=== PATIENT | female | born 1995 | race African-American/Black ===

== ENCOUNTER 2019-12-31 14:25 | Outpatient (CLI) | payer OTHER, SELFPAY ==
[2019-12-31 15:57] LABS: Basophils Percent Auto 0.2 % (0.2-1.2); Eosinophils Absolute Auto 0.3 K/mm3 (0-0.3); Eosinophils Percent Auto 3.2 % (0-4.4); Hematocrit 29.6 % (37.0-47.0); Hemoglobin 10.1 g/dL (12.0-15.0); Immature Granulocyte Absolute 0.06 K/mm3 (0.00-0.031); Immature Granulocyte Percent A 0.7 % (0-0.5); Lymphocytes Absolute Auto 1.76 K/mm3 (0.9-3.2); Lymphocytes Percent Auto 19.7 % (18.3-44.2); Mean Corpuscular HGB Conc 34.1 g/dl (32-36); Mean Corpuscular Hemoglobin 32.7 pg (26-34); Mean Corpuscular Volume 95.8 fl (80-100); Mean Platelet Volume 9.7 fl (7.4-10.4); Monocytes Absolute Auto 0.6 K/mm3 (0.1-0.6); Monocytes Percent Auto 6.3 % (2.6-8.5); Neutrophils Absolute Auto 6.2 K/mm3 (1.3-6.7); Neutrophils Percent Auto 69.9 % (45.5-73.1); Platelet Count Result 281 k/mm3 (150-375); Red Blood Count 3.09 M/mm3 (4.2-5.4); Red Cell Distribution Width 13.6 % (11.5-14.5); White Blood Count 8.9 K/mm3 (4.5-10.0)
[2019-12-31 16:02] LABS: Glucose 1 Hour PP 50gm Dose 108 mg/dL
== END 2019-12-31 14:26 | disposition home or self-care (01) ==
PROVIDERS: Visit Provider Obstetrics & Gynecology
DX: Z3A.25 25 weeks gestation of pregnancy (principal)
CPT/HCPCS: 36415; 82947; 85025

== ENCOUNTER 2020-02-24 15:19 | Outpatient (CLI) | payer OTHER, SELFPAY ==
[2020-02-24 15:56] LABS: Basophils Percent Auto 0.1 % (0.2-1.2); Eosinophils Absolute Auto 0.2 K/mm3 (0-0.3); Eosinophils Percent Auto 2.8 % (0-4.4); Hematocrit 32.2 % (37.0-47.0); Hemoglobin 10.8 g/dL (12.0-15.0); Immature Granulocyte Absolute 0.12 K/mm3 (0.00-0.031); Immature Granulocyte Percent A 1.4 % (0-0.5); Lymphocytes Absolute Auto 1.66 K/mm3 (0.9-3.2); Lymphocytes Percent Auto 19.6 % (18.3-44.2); Mean Corpuscular HGB Conc 33.5 g/dl (32-36); Mean Corpuscular Hemoglobin 32.1 pg (26-34); Mean Corpuscular Volume 95.8 fl (80-100); Monocytes Absolute Auto 0.8 K/mm3 (0.1-0.6); Monocytes Percent Auto 9.4 % (2.6-8.5); Neutrophils Absolute Auto 5.7 K/mm3 (1.3-6.7); Neutrophils Percent Auto 66.7 % (45.5-73.1); Platelet Count Result 248 k/mm3 (150-375); Red Blood Count 3.36 M/mm3 (4.2-5.4); White Blood Count 8.5 K/mm3 (4.5-10.0)
[2020-02-24 16:47] LABS: HIV 1/2 Ab P24 Ag Result Negative (Negative)
[2020-02-25 13:34] LABS: Rapid Plasma Reagin Non-Reactive (NonReactive)
== END 2020-02-24 15:20 | disposition home or self-care (01) ==
LOC: ANHLAB 15:19
PROVIDERS: Visit Provider Obstetrics & Gynecology
DX: Z34.93 Encounter for supervision of normal pregnancy, unspecified, third trimester (principal); Z3A.30 30 weeks gestation of pregnancy
CPT/HCPCS: 36415; 85025; 86592; 86703; G0432

== ENCOUNTER 2020-03-22 12:23 | Outpatient (RCR) | payer OTHER, SELFPAY ==
[2020-03-18 13:25] VITALS: BP 116/71; PULSE 89
--- NOTE | ~2020-03-22 | US_ITS ---
EXAMINATION: US OB limited DATE: 03/18/2020 13:25 INDICATION: Assess amniotic fluid index during third trimester of . TECHNIQUE: Real-time ultrasound of the pelvis was performed. The interpreting radiologist was not pre sent for the study. COMPARISON: None. FINDINGS: There is a single living fetus in vertex presentation. The placenta is anterior fundal. heart rate is 154 beats per minute (bpm). The amniotic fluid index is 9.1 cm, which is normal (5th%-95%: 7. 7-24.9 cm at 36 weeks estimated gestational age). The largest single vertical fluid pocket measures 5 .4 cm. IMPRESSION: 1. Single living fetus in vertex presentation with heart rate of 154 bpm. 2. Normal amniotic fluid index of 9.1 cm cm. Reviewed, dictated and finalized at location A. NG MACHINE OPERATOR IMPRESSION: 1. Single living fetus in vertex presentation with heart rate of 154 bpm . 2. Normal amniotic fluid index of 9.1 cm cm.
--- NOTE | ~2020-03-22 | US_ITS ---
US OB limited 03/22/2020 14:20 Indication: Evaluate amniotic fluid index. Procedure: High-resolution Limited obstetrical ultrasound Comparison: Ultrasound dated 03/18/2020 Findings: There is a single living intrauterine in vertex presentation. heart rate is 142 BPM. Placenta is anterior. BETH is normal measuring 9.2 cm. Impression: 1: Single living intrauterine in vertex presentation. 2: Normal BETH measures 9.2 cm. Reviewed, dictated and finalized at location A. BOSS Impression: 1: Single living intrauterine in vertex presentation. 2: Normal BETH measures 9.2 cm.
== END 2020-03-29 10:27 | disposition home or self-care (01) ==
LOC: ANHOBOP 12:23
PROVIDERS: Visit Provider Obstetrics & Gynecology
DX: O41.03X0 Oligohydramnios, third trimester, not applicable or unspecified (principal); Z3A.36 36 weeks gestation of pregnancy
CPT/HCPCS: 59025; 76815

== ENCOUNTER 2020-03-25 15:42 | Inpatient (IN) | payer OTHER, MEDICAID, SELFPAY ==
[2020-03-25] VITALS (10 sets, daily range): BP systolic 104–128; BP diastolic 52–85; PULSE 91–108; RESP 18–20; TEMP 36.2–36.4; BMI 26.7
--- NOTE | 2020-03-25 16:20 | LDADM ---
This patient, Sabine Zuleta, was admitted to Labor/Delivery/Recovery 102 on 03/25/20 at 15:42. Plans for labor, pain management and were discussed with patient. Patient/family oriented to hospital policies and general routines including ID bracelet, bed and alarms, visiting hours, pain management, procedures, bathroom and other care routines, personal items, smoking policy, room service/diet and guest tray routines, infant security routines,call light, and visiting hours. Patient/Family are encouraged to report perceived risks to care and to ask questions if they do not understand what they are told or what they should do. See OBIX for further documentation.
[2020-03-25 16:48] LABS: Basophils Percent Auto 0.1 % (0.2-1.2); Eosinophils Absolute Auto 0.2 K/mm3 (0-0.3); Eosinophils Percent Auto 3.1 % (0-4.4); Hematocrit 33.5 % (37.0-47.0); Hemoglobin 11.2 g/dL (12.0-15.0); Immature Granulocyte Absolute 0.06 K/mm3 (0.00-0.031); Immature Granulocyte Percent A 0.8 % (0-0.5); Lymphocytes Absolute Auto 1.38 K/mm3 (0.9-3.2); Lymphocytes Percent Auto 19.3 % (18.3-44.2); Mean Corpuscular HGB Conc 33.4 g/dl (32-36); Mean Corpuscular Hemoglobin 31.9 pg (26-34); Mean Corpuscular Volume 95.4 fl (80-100); Mean Platelet Volume 10.2 fl (7.4-10.4); Monocytes Absolute Auto 0.8 K/mm3 (0.1-0.6); Monocytes Percent Auto 10.9 % (2.6-8.5); Neutrophils Absolute Auto 4.7 K/mm3 (1.3-6.7); Neutrophils Percent Auto 65.8 % (45.5-73.1); Platelet Count Result 221 k/mm3 (150-375); Red Blood Count 3.51 M/mm3 (4.2-5.4); Red Cell Distribution Width 14.2 % (11.5-14.5); White Blood Count 7.2 K/mm3 (4.5-10.0)
[2020-03-25] MEDS: DINOPROSTONE 10 MG VAG INSERT VAGINAL (18:00)
[2020-03-25 18:53] LABS: Barbiturate Screen Urine Negative (Negative); Benzodiazepines Screen Urine Negative (Negative)
[2020-03-25 18:55] LABS: Amphetamine Screen Urine Negative (Negative); Cannabinoid Screen Urine Negative (Negative); Cocaine Screen Urine Negative (Negative); Opiate Screen Urine Negative (Negative); Phencyclidine Screen Urine Negative (Negative)
[2020-03-25 19:04] LABS: Methadone Screen Urine Negative (Negative)
[2020-03-26] VITALS (152 sets, daily range): BP systolic 92–152; BP diastolic 23–120; PULSE 74–242; RESP 16–18; TEMP 36.3–37.1; O2SAT 76–100
[2020-03-26] MEDS: LACTATED RINGERS 1,000 ML 125 ML IV CONT ×2 (06:56→10:13)
[2020-03-26] MEDS: OXYTOCIN 30 UNITS/NS 500 ML 30 UNITS/500 ML BAG 6 UNITS IV CONT (06:57)
--- NOTE | 2020-03-26 07:07 | WPDANESEPP ---
Anes - Eval Pre Procedure Procedure: labor epidural Date/Time: 03/26/20 07:07 Surgeon: Lcuien Preop Diagnosis: Pain during labor Pre Op Diagnosis: Induction of Labor Patient Data Age: 24 Gender: F Height: 5 ft 10 in Weight: 84.5 kg Last Vital Signs Temp 36.3 C L 03/26/20 04:02 Pulse 87 03/26/20 07:01 Resp 18 03/26/20 04:02 BP 118/69 03/26/20 07:01 Allergies Allergy/AdvReac Type Severity Reaction Status Date / Time No Known Allergies Allergy Verified 03/25/20 16:12 Home Medications Medication Instructions Recorded Confirmed Type prenat.vits,harshal,vsf-[id number] 1 tablet PO DAILY 12/16/19 03/25/20 History Laboratory Tests 03/25/20 03/25/20 03/25/20 16:41 16:41 16:41 WBC 7.2 K/mm3 K/mm3 (4.5-10.0) RBC 3.51 M/mm3 L M/mm3 (4.2-5.4) Hgb 11.2 g/dL L g/dL (12.0-15.0) Hct 33.5 % L % (37.0-47.0) MCV 95.4 fl fl (80-100) MCH 31.9 pg pg (26-34) MCHC 33.4 g/dl g/dl (32-36) RDW 14.2 % % (11.5-14.5) Plt Count 221 k/mm3 k/mm3 (150-375) MPV 10.2 fl fl (7.4-10.4) Immature Gran % (Auto) 0.8 % H % (0-0.5) Neut % (Auto) 65.8 % % (45.5-73.1) Lymph % (Auto) 19.3 % % (18.3-44.2) [place] % (Auto) 10.9 % H % (2.6-8.5) Eos % (Auto) 3.1 % % (0-4.4) Baso % (Auto) 0.1 % L % (0.2-1.2) Lymph # (Auto) 1.38 K/mm3 K/mm3 (0.9-3.2) [place] # (Auto) 0.8 K/mm3 H K/mm3 (0.1-0.6) Eos # (Auto) 0.2 K/mm3 K/mm3 (0-0.3) Baso # (Auto) 0.0 K/mm3 K/mm3 (0.0-0.1) Abs Immat Gran (auto) 0.06 K/mm3 H K/mm3 (0.00-0.031) Absolute Neuts (auto) 4.7 K/mm3 K/mm3 (1.3-6.7) Absolute Nucleated RBC 0.0 K/mm3 K/mm3 (0.0-0.012) Nucleated RBC % 0.0 % % (0.0-0.2) Urine Opiates Screen Urine Methadone Screen Ur Barbiturates Screen Ur Phencyclidine Scrn Ur Amphetamine Screen U Benzodiazepines Scrn Urine Cocaine Screen U Cannabinoids Screen RPR Pending Blood Type A Positive Antibody Screen Negative 03/25/20 18:30 WBC RBC Hgb Hct MCV MCH MCHC RDW Plt Count MPV Immature Gran % (Auto) Neut % (Auto) Lymph % (Auto) [place] % (Auto) Eos % (Auto) Baso % (Auto) Lymph # (Auto) [place] # (Auto) Eos # (Auto) Baso # (Auto) Abs Immat Gran (auto) Absolute Neuts (auto) Absolute Nucleated RBC Nucleated RBC % Urine Opiates Screen Negative (Negative) Urine Methadone Screen Negative (Negative) Ur Barbiturates Screen Negative (Negative) Ur Phencyclidine Scrn Negative (Negative) Ur Amphetamine Screen Negative (Negative) U Benzodiazepines Scrn Negative (Negative) Urine Cocaine Screen Negative (Negative) U Cannabinoids Screen Negative (Negative) RPR Blood Type Antibody Screen Patient hx anesthesia problems: none Family hx anesthesia problems: none [facility] Past Medical History Medical History Miscarriage Family History Family History Father No problems noted. Mother Diabetes mellitus Social History Social History Smoking status: Former smoker Alcohol intake: never Substance use: former Substance use type: marijuana Gender identity (if verbalized by the patient): Female Sexual Orientation (if Verbalized by the Patient): Straight or Heterosexual Exam Day of Procedure 03/26/20 07:07 Patient weight: normal Heart: regular rate and rhythm
[2020-03-26 07:50] LABS: Rapid Plasma Reagin Non-Reactive (NonReactive)
--- NOTE | 2020-03-26 09:08 | PM.IMHP ---
H&P: HPI History of Present Illness Date/Time: 03/26/20 09:08 Chief Complaint: Oligohydramnios Narrative: Sabine Zuleta is a 24 year old female at 37 weeks by EDC of 04/14/20 based on LMP 07/08/20, c/w 20 week ultrasound. She has had intermittent oligohydramnios for over a week. She had testing today at [facility] and BETH was 4.5. She was recommended for induction of labor for oligohydramnios at term. Discussed risk of continuing with oligohydramnios and risk of induction discussed. She agrees to induction. PNC significant also for history of marijuana use which she had been counseled to stop. UDS pos for marijuana. Labs reviewed. GBS neg. HIV neg first and third trimester. Review of Systems Review of Systems: All systems reviewed & are unremarkable except as noted in HPI and below Constitutional: Constitutional: Reports no additional constitutional complaints and Denies headache(s) Eyes: Eyes: Denies spots in vision ENT: Reports system reviewed and no additional complaints, except as documented and Denies headache(s) Cardiovascular: Cardiovascular: Denies chest pain and Denies dyspnea Respiratory: Respiratory: Denies dyspnea Gastrointestinal: Gastrointestinal: Reports no additional gastrointestinal complaints Genitourinary: Genitourinary: Reports amenorrhea Musculoskeletal: Musculoskeletal: Reports no additional musculoskeletal complaints Integumentary/Breasts: Skin/Breast: Denies breast mass and Denies rash Neurologic: Denies headache(s) Psychiatric: Psychiatric: Reports no additional psychiatric complaints PMFSH Past Medical History Medical History Miscarriage Family History Family History Father No problems noted. Mother Diabetes mellitus Social History Social History Smoking status: Former smoker Alcohol intake: never Substance use: former Substance use type: marijuana Gender identity (if verbalized by the patient): Female Sexual Orientation (if Verbalized by the Patient): Straight or Heterosexual Meds Home Medications and Allergies Home Medications Medication Instructions Recorded Confirmed Type prenat.vits,harshal,ldq-ekpj-trexe 1 tablet PO DAILY 12/16/19 03/25/20 History Allergies Allergy/AdvReac Type Severity Reaction Status Date / Time No Known Allergies Allergy Verified 03/25/20 16:12 Vital Signs Vital Signs - 24 hr 03/25/20 16:15 03/25/20 16:30 03/25/20 17:59 Temperature 97.1 F L Pulse Rate 102 H 93 Respiratory Rate Blood Pressure 116/75 128/72 03/25/20 18:20 03/25/20 19:03 03/25/20 19:16 Temperature 97.5 F L Pulse Rate 100 94 Respiratory Rate 20 Blood Pressure 112/85 110/53 L 03/25/20 19:31 03/25/20 19:46 03/25/20 20:00 Temperature 97.6 F Pulse Rate 91 108 H 94 Respiratory Rate 18 Blood Pressure 106/52 L 104/69 108/57 L 03/25/20 23:58 03/26/20 04:02 03/26/20 06:56 Temperature 97.2 F L 97.4 F L Pulse Rate 101 H 101 H 88 Respiratory Rate 18 18 Blood Pressure 111/66 112/67 123/84 03/26/20 07:00 03/26/20 07:01 03/26/20 07:31 Temperature 97.7 F Pulse Rate 87 90 Respiratory Rate Blood Pressure 118/69 103/54 L 03/26/20 08:01 03/26/20 08:31 03/26/20 09:01 Temperature Pulse Rate 92 95 96 Respiratory Rate Blood Pressure 115/64 100/43 L 115/61 Exam Const: General: no acute distress Eyes: General: appearance normal, both eyes and all related structures Resp: Effort & Inspection: normal respiratory effort Cardio: Rate: regular rate GI: Other: Gravid no fundal tenderness no right upper quadrant pain : External Female Exam: normal external appearance Manual OB Exam: dilated fingertip, effaced 50% and station -2 Amniotic Fluid: no fluid Skin: General skin exam: no rashes or lesions noted Neuro:
--- NOTE | 2020-03-26 09:13 | P.PNOB_ITS ---
OB - PN: Subj Subjective Date/time seen: 03/26/20 09:13 FHT 135, Cat 1, ctx q 2. Cervix /2, AROM clear. Continue Pitocin. OB - PN: Obj Data Labs CBC & Chem 7: 03/25/20 16:41 Labs: Laboratory Results - last 24 hr 03/25/20 03/25/20 03/25/20 16:41 16:41 16:41 WBC 7.2 RBC 3.51 L Hgb 11.2 L Hct 33.5 L MCV 95.4 MCH 31.9 MCHC 33.4 RDW 14.2 Plt Count 221 MPV 10.2 Immature Gran % (Auto) 0.8 H Neut % (Auto) 65.8 Lymph % (Auto) 19.3 [place] % (Auto) 10.9 H Eos % (Auto) 3.1 Baso % (Auto) 0.1 L Lymph # (Auto) 1.38 [place] # (Auto) 0.8 H Eos # (Auto) 0.2 Baso # (Auto) 0.0 Abs Immat Gran (auto) 0.06 H Absolute Neuts (auto) 4.7 Absolute Nucleated RBC 0.0 Nucleated RBC % 0.0 Urine Opiates Screen Urine Methadone Screen Ur Barbiturates Screen Ur Phencyclidine Scrn Ur Amphetamine Screen U Benzodiazepines Scrn Urine Cocaine Screen U Cannabinoids Screen RPR Non-reactive Blood Type A Positive Antibody Screen Negative 03/25/20 18:30 WBC RBC Hgb Hct MCV MCH MCHC RDW Plt Count MPV Immature Gran % (Auto) Neut % (Auto) Lymph % (Auto) [place] % (Auto) Eos % (Auto) Baso % (Auto) Lymph # (Auto) [place] # (Auto) Eos # (Auto) Baso # (Auto) Abs Immat Gran (auto) Absolute Neuts (auto) Absolute Nucleated RBC Nucleated RBC % Urine Opiates Screen Negative Urine Methadone Screen Negative Ur Barbiturates Screen Negative Ur Phencyclidine Scrn Negative Ur Amphetamine Screen Negative U Benzodiazepines Scrn Negative Urine Cocaine Screen Negative U Cannabinoids Screen Negative RPR Blood Type Antibody Screen OB - PN A/P Time Spent With Patient Time: Total time spent is greater than 50% in coordination of care (as documented) at patient's floor/unit and/or counseling patient:
--- NOTE | 2020-03-26 19:59 | PM.OBPRVD ---
OB - Delivery Note Procedure Delivery date: 03/26/20 Procedure: Spontaneous vaginal delivery events: Oligohydramnios Intrapartal events: None Induction method: per pitocin protocol and per cervidil protocol Delivery augmentation: rupture of membranes Delivery monitor: external FHT and internal uterine Route of delivery: Laceration Description: Perineal - 1st Degree and Vaginal - 1st Degree Delivery repair: vicryl (3.0 vicryl) Specimen: No Quantitative Blood Loss (ml): 350 Anesthesia type: Epidural Disposition: floor Complications: None Narrative: Patient admitted on 03/25/20 for cervidil for medical induction of labor for oligohydramnios. She was started on cervidil the evening of 03/25/20 and subsequently started on Pitocin the morning of 03/26/20. She had AROM clear at approximately 0830 on 03/26/20. She had IUPC placed to monitor adequacy of contractions. She was having frequent contractions. She progressed to active labor. She progressed to complete and delivered a female . was vigorously crying and placed on maternal abdomen. Delayed cord clamping for 45 seconds. Cord blood and cord gases obtained. Placenta delivered spontaneously and intact. She did have initially mild hypotonia of uterus resolved with uterine massage and clearing lower uterine segment of clot. She sustained right vaginal wall laceration at right superior and it was repaired with 3.0 vicryl. She also had a first degree perineal laceration repaired with 3.0 vicryl. Baby Date of : 03/26/20 Time of : 19:26 Weeks of gestation at delivery: 37 Infant gender: Female Weight (pounds): 7 Weight (ounces): 10 presentation: vertex position: Right Occiput Anterior Placenta delivery description: Spontaneous (intact) cord vessel description: Nuchal Cord (one reduced manually) and Delayed Cord Clamping score one minute: 9 score five minutes: 9
[2020-03-26] MEDS: OXYTOCIN 30 UNITS/NS 500 ML 30 UNITS/500 ML BAG 125 UNITS IV CONT (20:00)
[2020-03-26] MEDS: WITCH HAZEL 40 PADS 1 PAD TOPICAL (22:10)
[2020-03-26] MEDS: BENZOCAINE 20% AER SPR (*SP) 56 GM CAN 1 SPRAY TOPICAL (22:10)
--- NOTE | 2020-03-26 22:20 | PC.NURSE ---
Patient transferred to post room #290 via wheelchair. Support person present. Oriented to unit, room, information board, rooming in, admission packet and security measures. Patient verbalizes understanding.
[2020-03-27 01:30] VITALS: PULSE 108
[2020-03-27] MEDS: ACETAMINOPHEN 325 MG TABLET 650 MG PO (01:37)
[2020-03-27 04:15] VITALS: PULSE 92
[2020-03-27 04:55] LABS: Hematocrit 28.6 % (37.0-47.0); Hemoglobin 9.6 g/dL (12.0-15.0)
--- NOTE | 2020-03-27 07:28 | WPDANLDPN2 ---
Anes-Prog Note L&D Date/Time: 03/27/20 07:28 Comfortable throughout: labor and delivery Neuraxial method: epidural Epidural/Spinal procedure site: clean & non-tender Neuro status: Neuro function grossly intact. Cardiovascular status: normal Respiratory status: normal Airway patency: baseline Mental status: baseline Post-Op hydration status: normal Vital Signs: Last Vital Signs Temp 37.1 C 03/26/20 22:45 Pulse 92 03/27/20 04:15 Resp 16 03/26/20 22:45 BP 115/61 03/26/20 22:45 Pulse Ox 100 03/26/20 22:45 Pain score (VAS): 2 I/O: Intake & Output 03/26/20 03/26/20 03/27/20 15:59 23:59 07:59 Intake Total 1000 1000 500 Output Total 390 Balance 1000 610 500 Post-procedural complaints: none Patient feedback: Patient satisfied with anesthetic care.
[2020-03-27 09:05] VITALS: BP 124/77; PULSE 100; RESP 18; TEMP 36.1
[2020-03-27] MEDS: IBUPROFEN 600 MG TABLET PO ×2 (09:05→16:50)
[2020-03-27] MEDS: MULTIVIT/MIN/PREN/FOL AC/IRON TABLET 1 TAB PO (09:05)
[2020-03-27] MEDS: DOCUSATE SODIUM 100 MG CAPSULE PO ×2 (09:05→16:50)
[2020-03-27] MEDS: POLYSACCHARIDE IRON COMPLEX 150 MG CAPSULE PO ×2 (09:05→16:50)
--- NOTE | 2020-03-27 09:43 | P.PNOB_ITS ---
OB - PN: Subj Subjective Date/time seen: 03/27/20 09:43 No lightheadedness or dizziness. Patient comments: pain well controlled, tolerating diet and other (Decreasing lochia.) [place] baby status: doing well and nursing well OB - PN: Obj Data Labs CBC & Chem 7: 03/27/20 04:14 Labs: Laboratory Results - last 24 hr 03/27/20 04:14 Hgb 9.6 L Hct 28.6 L OB - PN A/P Plan day: 1 Plan: routine care Comments: Patient doing well. PPD 1 s/p . Asymptomatic anemia. Continue iron supplementation. Routine care. Anticipate discharge tomorrow. Time Spent With Patient Time: Total time spent is greater than 50% in coordination of care (as documented) at patient's floor/unit and/or counseling patient: Exam Psych: Affect: normal affect Other: Abd: fundus firm below umbilicus, nontender Perineum: healing Ext: nontender
[2020-03-27 19:20] VITALS: BP 102/51; PULSE 99; RESP 16; TEMP 36.1; O2SAT 100
--- NOTE | 2020-03-27 19:20 | PC.NURSE ---
Patient to view the discharge video Mother & Baby Care, The First Two Weeks online. Patient was given the opportunity and encouraged to ask questions. Patient verbalized understanding of information shared and has been given the mother/baby guide for home reference.
[2020-03-28] MEDS: POLYSACCHARIDE IRON COMPLEX 150 MG CAPSULE PO (08:22)
[2020-03-28] MEDS: MULTIVIT/MIN/PREN/FOL AC/IRON TABLET 1 TAB PO (08:22)
[2020-03-28] MEDS: IBUPROFEN 600 MG TABLET PO (08:22)
[2020-03-28] MEDS: DOCUSATE SODIUM 100 MG CAPSULE PO (08:22)
[2020-03-28] MEDS: MEASLES,MUMPS,RUBELLA VACCINE 0.5 ML VIAL SUB-Q (08:24)
[2020-03-28 08:25] VITALS: BP 110/59; PULSE 92; RESP 16; TEMP 36.7
--- NOTE | 2020-03-28 09:51 | P.PNOB_ITS ---
OB - PN: Subj Subjective Date/time seen: 03/28/20 09:51 She denies complaints. Patient comments: pain well controlled, tolerating diet and other (Decreasing lochia.) [place] baby status: doing well and nursing well OB - PN: Obj Data Labs CBC & Chem 7: 03/27/20 04:14 OB - PN A/P Assessment and Plan (1) Delivery normal: Code(s): O80 - Encounter for full-term uncomplicated delivery Status: Acute Assessment and Plan: Patient doing well. Discharge today. Discharge precautions discussed. (2) Anemia, : Code(s): O90.81 - Anemia of the puerperium Status: Acute Assessment and Plan: Continue iron supplementation at home. Plan day: 2 Plan: discharge home and other Comments: Patient doing well. Follow up 4-6 weeks. Discharge instructions provided. Time Spent With Patient Time: Total time spent is greater than 50% in coordination of care (as documented) at patient's floor/unit and/or counseling patient: Time with patient: less than 15 minutes Exam Psych: Affect: normal affect Other: Abd: fundus firm below umbilicus, nontender Ext: nontender
--- NOTE | 2020-03-28 10:02 | PM.DS ---
DS: Admitting Diagnosis Admitting Diagnosis Admitting Diagnosis: Oligohydramnios DS: Discharge Diagnosis Discharge Diagnosis (1) Oligohydramnios: Code(s): O41.00X0 - Oligohydramnios, unspecified trimester, not applicable or unspecified Status: Acute (2) Delivery normal: Code(s): O80 - Encounter for full-term uncomplicated delivery Status: Acute DS: Summary Hospital Course Hospital Course: Patient was admitted for medical induction of labor due to oligohydramnios. She was given cervidil. The cervidil was removed after 12 hours. She was then started on IV Pitocin. She had assisted rupture of membranes of clear fluid. She progressed to active labor. She had an uncomplicated vaginal delivery of healthy female infant. She had repair of a small vaginal and perineal laceration. She did well . She had adequate pain control. She had asymptomatic anemia. She was discharged to home on 03/28/20. Time Spent with Patient Time attestation: Total time spent providing and/or coordinating discharge services: Exam Const: General: comfortable and no acute distress Eyes: General: appearance normal, both eyes and all related structures Resp: Effort & Inspection: normal respiratory effort GI: Inspection: normal to inspection GI Palp: Yes Other GI palpation findings present (nontender) : External Female Exam: normal external appearance Extrem: General: normal to inspection Other: nontender DS: Data Procedures/Treatments: Medical induction of labor. Spontaneous vaginal delivery. Discharge Plan Discharge Attending physician on discharge: Perico Mcgraw Consulting providers: Camacho Sadler Discharging Clinician: Perico Mcgraw Anticipated Discharge Date/Time: 03/28/20 09:56 Patient Disposition: Home, Self-Care Activity: pelvic rest Diet: regular Discharge Instructions: Education: Mom and Baby Guide and Preeclampsia Handout Given to: Mother Follow-Up: Call your delivering provider's office for an appointment to be seen in: 4 Weeks Mom and baby [facility] for the follow-up appointment. Appointment Date/Time: March 31, 2020 at 11:00 am What to expect at your follow-up visit: Physical Assessment Call [phone] if you are unable to keep your appointment time. BREAST CARE: * Wear a snug supportive bra. * For engorgement discomfort: Bottle Feeding: * May apply ice packs EPISIOTOMY/PERINEAL CARE: * Until bleeding stops, use your bipin bottle after urinating * Change your pad frequently throughout the day * You may take sitz baths several times a day (fill your bathtub with warm water and soak for 20 minutes.) Do NOT bathe in the water * No tub baths until seen by your physician - You may shower ACTIVITY: * Rest as much as possible. * Do not exercise or lift anything heavier than your baby (such as laundry or other children.) * Avoid stairs or driving as much as possible. * Do not put anything into the vagina. No douching, tampons, or sexual activity until seen by physician. NOTIFY PHYSICIAN IF YOU HAVE ANY QUESTIONS OR IF ANY OF THE FOLLOWING SYMPTOMS OCCUR: * If your episiotomy or stitches becomes red, swollen, or more painful than what you have experienced in the hospital. * If your vaginal bleeding becomes foul smelling. * If your vaginal bleeding becomes more heavy than a period or if your bleeding changes from pink to bright red. However, you may pass an occasional walnut-sized clot once or twice for the first week . * If you experience a sharp, shooting pain in you calves. * If you discover a hard, reddened area on your breast or if you experience flu-like symptoms. DIET: * Eat regular, well-balanced meals. * Drink plenty of fluids daily. Patient Instructions: Antibiotic Form Stand Alone Forms: General Discharge Information Follow-up/Referrals: St
[2020-03-31 11:14] VITALS: BP 123/67; PULSE 84; RESP 20; TEMP 37.1; O2SAT 100
== END 2020-03-28 11:00 | disposition home or self-care (01) | DRG 806 ==
LOC: ANHLDR 03-26 14:35 → ANHOB2 03-26 22:52
PROVIDERS: Admitting Provider Obstetrics & Gynecology; Visit Provider Obstetrics & Gynecology
DX: O41.03X0 Oligohydramnios, third trimester, not applicable or unspecified (principal); O71.4 Obstetric high vaginal laceration alone; Z37.0 Single live birth; O69.81X0 Labor and delivery complicated by cord around neck, without compression, not applicable or unspecified; Z3A.37 37 weeks gestation of pregnancy
CPT/HCPCS: 36415; 80307; 85014; 85018; 85025; 86592; 86850; 86900; 86901; 90710; A9270; J2590; J2795; J7120

== ENCOUNTER 2021-12-13 09:39 | Emergency (ER) | payer OTHER, BC, SELFPAY ==
--- NOTE | 2021-12-13 09:41 | ED.URI ---
HPI - URI/Sore Throat General Chief Complaint: Upper Respiratory Infection Stated Complaint: Sore Throat Time Seen by Provider: 12/13/21 09:41 Source: patient Mode of arrival: ambulatory Limitations: no limitations History of Present Illness HPI Narrative: Ms. Zuleta is a 26-year-old female patient presenting to the clinic today with complaints of a sore throat x2 days. She reports she has had sore throat, cough, and runny nose x2 days. She reports that she is actually had runny nose since last week. She denies any fever or chills. She denies any known exposure to anyone with COVID, flu, or strep. She does work in a intermediate facility. MD elicited complaint: cough, sore throat and nasal congestion Related Data Home Medications Medication Instructions Recorded Confirmed No Home Medications 12/13/21 12/13/21 Allergies Allergy/AdvReac Type Severity Reaction Status Date / Time No Known Allergies Allergy Verified 12/13/21 09:45 Review of Systems Review of Systems: Pertinent positives per HPI. Patient denies any fever, chills, rash, headache, visual changes, dizziness, shortness of breath, chest pain, palpitations, nausea, vomiting, diarrhea, constipation, abdominal pain, or any urinary issues. FOR[facility]LY [facility], [facility] Past Medical History Medical History (Updated 12/13/21 @ 09:52 by Timothy Carrillo APRN) Miscarriage Family History Family History Father No problems noted. Mother Diabetes mellitus Social History Social History Smoking status: Former smoker Alcohol intake: never Substance use: former Substance use type: marijuana Gender identity (if verbalized by the patient): Female Sexual Orientation (if Verbalized by the Patient): Straight or Heterosexual Comments At the time of my signature, I reviewed and agree with the nursing past medical, surgical, social, and family history. There is no relevant family history pertinent to the patient complaint. Exam Narrative: General: Well-developed, well nourished, in no apparent distress Head: Normocephalic, atraumatic Eyes: Pupils equally round and reactive to light bilaterally, EOM intact, sclera and conjunctive clear, no discharge, lids normal Ears: TMs intact and clear, ear canals clear, no drainage, grossly hearing normal. Nose: Nares patent, clear nasal discharge, mild inflammation, no sinus tenderness. Mouth: Oral pharynx without lesions or masses, good dentition, MMM. Oropharynx red without tonsillar enlargement or exudate Neck: Supple, trachea midline, no enlargement of anterior or posterior cervical nodes, no thyroid masses or goiter palpable. Cardio: Regular rate and rhythm, s1 and s2 normal, no murmur appreciated. Resp: Clear to auscultation bilaterally, no rhonchi, rales, wheezing or rubs Course Course Emergency Course: Portions of this record may have been created with voice recognition software. Level of Care: Express Care Visit Vital Signs Vital signs: Vital signs reviewed MDM - URI/Sore Throat MDM Narrative Medical decision making narrative: At the time of visit patient is resting comfortably on the exam table. Strep screen was obtained and was negative in the clinic today. I suspect the patient has viral pharyngitis and supportive measures were discussed with the patient and she voiced understanding of discharge instructions. Strep culture was sent to the lab Differential Diagnosis Differential diagnosis: Likely upper respiratory infection, otitis media, sinusitis, viral infection, bronchitis, influenza, pharyngitis and other (COVID) Discharge Plan Discharge Clinical Impression: Pharyngitis Qualifiers: Pharyngitis/tonsillitis etiology: unspecified etiology Qualified Code(s): J02.9 - Acute pharyngitis, unspecified Patient Disposition: Home, Self-Care Condition: Stable In
[2021-12-13 09:47] VITALS: BP 116/77; PULSE 84; RESP 16; TEMP 36.6; O2SAT 99
== END 2021-12-13 10:19 | disposition home or self-care (01) ==
PROVIDERS: Emergency Provider Nurse Practitioner Family
DX: J02.9 Acute pharyngitis, unspecified (principal); Z87.891 Personal history of nicotine dependence; F12.90 Cannabis use, unspecified, uncomplicated
CPT/HCPCS: 87081; 87880; 99213; G0463

== ENCOUNTER 2022-08-23 15:47 | Outpatient (RCR) | payer OTHER, BC, SELFPAY ==
[2022-08-23 17:15] VITALS: BP 112/67; PULSE 66
== END 2022-11-21 23:59 | disposition home or self-care (01) ==
LOC: ANHOBOP 15:47
PROVIDERS: Visit Provider Obstetrics & Gynecology Gynecology
DX: O36.8130 Decreased fetal movements, third trimester, not applicable or unspecified (principal); Z3A.23 23 weeks gestation of pregnancy
CPT/HCPCS: 59025